=== PATIENT | female | born 1985 | race African-American/Black ===

== ENCOUNTER 2017-09-05 14:35 | Emergency (ER) | payer OTHER ==
[~2017-09-05] VITALS: Ht 167.6 cm; Wt 76.0 kg
[2017-09-05 17:26] LABS: CLARITY URINE CLEAR (CLEAR); COLOR URINE YELLOW (YELLOW); KETONES URINE NEGATIVE (NEGATIVE); LEUKOCYTE ESTERASE URINE NEGATIVE (NEGATIVE); NITRITE URINE NEGATIVE (NEGATIVE); OCCULT BLOOD URINE NEGATIVE (NEGATIVE); PH URINE 5.5 (4.5-8.0); PROTEIN URINE NEGATIVE (NEGATIVE); SPECIFIC GRAVITY URINE 1.024 (1.005-1.030)
[2017-09-05 19:34] VITALS: BP 122/75
[2017-09-09 19:08] LABS: CHLAMYDIA TRACHOMATIS NAA Negative (Negative); NEISSERIA GONORRHOEAE NAA Negative (Negative)
== END 2017-09-05 19:35 | disposition home or self-care (01) ==
LOC: ER 14:35
DX: N89.8 Other specified noninflammatory disorders of vagina (principal)
CPT/HCPCS: 81003; 81025; 87210; 87491; 87591; 99284; Z7610